=== PATIENT | male | born 1955 | race Caucasian/White ===

== ENCOUNTER → 2016-12-13 | Outpatient (CLI) | payer BC, OTHER ==
[~2016-12-13] MED LIST: IOPAMIDOL (ISOVUE 370) 100 ML BTL IV ONE
== END ==
LOC: FIMAGING 08:05
PROVIDERS: ATTEND Physical Medicine & Rehabilitation
DX: M54.2 Cervicalgia (principal); H91.90 Unspecified hearing loss, unspecified ear
CPT/HCPCS: Q9967

== ENCOUNTER → 2017-10-03 | Outpatient (CLI) | payer OTHER | LOC: CIMAGING 07:15 | PROVIDERS: ATTEND Family Medicine | DX: R10.31 Right lower quadrant pain (principal) | CPT/HCPCS: 76705-PO ==

== ENCOUNTER 2018-02-06 06:37 | Day surgery (SDC) | payer OTHER ==
--- NOTE | 2018-02-05 13:03 | GHP ---
[f rep st] PREOP HISTORY AND PHYSICAL DATE OF ADMISSION: 02/06/2018 CHIEF COMPLAINT: Right lower quadrant abdominal pain. HISTORY OF PRESENT ILLNESS: The patient is a 62-year-old male referred from his PCP regarding right lower quadrant pain associated with a right inguinal hernia. The patient first noticed this in late 2016 after experiencing a pulling sensation in his right groin with side stepping. He says the pain is worse when he presses on the area. He has no history of prior abdominal surgeries here. He denie s nausea, vomiting, diarrhea, or constipation. He has no chronic cough or urinary problems. He had a CT scan of the abdomen and pelvis showing a right inguinal bulging without true herniation and a sm all fat-containing left inguinal hernia as well. He was instantly found to have a small umbilical he rnia on exam today as well. PAST MEDICAL HISTORY: Obstructive sleep apnea, on CPAP. PAST SURGICAL HISTORY: Denies. MEDICATIONS: Atorvastatin, cyclobenzaprine, gemfibrozil, promethazine. ALLERGIES: No known drug allergies. FAMILY MEDICAL HISTORY: Includes father, coronary artery disease with NE. Mother has a family histo ry of leukemia and lymphoma. SOCIAL HISTORY: The patient does not drink alcohol. He does drink caffeine. He is a never smoker. He works as an cost engineer. REVIEW OF SYSTEMS: Includes leg swelling and fullness. PHYSICAL EXAMINATION: GENERAL: A well-developed, well-nourished 62-year-old male, alert and oriente d x3, and in no acute distress. HEENT: Normocephalic, atraumatic. CHEST: Clear to auscultation bi laterally. CARDIAC: Regular rate and rhythm. ABDOMEN: Soft, with reducible right greater than lef t inguinal hernias. Some pain associated with his right inguinal hernia, which is more prominent wit h coughing. Also, a small, reducible umbilical hernia. SKIN: Warm and dry. EXTREMITIES: No edema . IMPRESSION: This is a 62-year-old male with a symptomatic right inguinal hernia and incidentally fou nd left inguinal and umbilical hernias as well. PLAN: Plan will be to proceed with open umbilical hernia surgery with laparoscopic bilateral inguina l hernia surgery using mesh. Again, risks and options have been discussed and include, but are not l imited to, bleeding, infection, nerve injury, recurrence, conversion to open procedure, damage to indu rounding structures, traumatic cord injury, bladder injury, bowel injury, testicular ischemia, and ot her problems, and he requests to proceed. /[id number]/MODL
[2018-02-06] MEDS ORDERED: BUPIVACAINE 0.5% 30 ML SDV ONE (07:08)
[2018-02-06] MEDS ORDERED: ceFAZolin 2 GM/SWFI 2 GM/20 ML SYR IVP ONE (07:10)
--- NOTE | 2018-02-06 07:10 | PDHPUP ---
History & Physical Update H&P update statement: This history and physical update is based on an assessment of the patient which was completed after admission or registration (within 24 hours), but prior to the surgery/procedure. H&P update: H&P reviewed & patient examined, no change in patient's condition since H&P completed
[2018-02-06] MEDS ORDERED: LR 1,000 ML IV ONE (07:11)
--- NOTE | 2018-02-06 07:20 | PDANEPAE ---
ANE Past Medical History - Cardiovascular History Hx Hypertension: No Hx Arrhythmias: No Hx Chest Pain: No Hx Coronary Artery / Peripheral Vascular Disease: No Hx CHF / Valvular Disease: No Hx Palpitations: No Cardiovascular History Comment: high chol - Pulmonary History Hx COPD: No Hx Asthma/Reactive Airway Disease: No Hx Recent Upper Respiratory Infection: No Hx Oxygen in Use at Home: No Hx Sleep Apnea: No Sleep Apnea Screening Result - Last Documented: Negative - Neurologic History Hx Cerebrovascular Accident: No Hx Seizures: No Hx Dementia: No - Endocrine History Hx Diabetes: No Hypothyroid: No Hyperthyroid: No Obesity: no - Renal History Hx Renal Disorders: No - Liver History Hx Hepatic Disorders: No - Neurological & Psychiatric Hx Hx Neurological and Psychiatric Disorders: No - Cancer History Hx Cancer: No - Congenital Disorder History Hx Congenital Disorders: No - GI History GERD: no Hx Gastrointestinal Disorders: No - Other Health History Other Health History: wears glasses - Chronic Pain History Chronic Pain: No - Surgical History Prior Surgeries: bump removed from left big toe a year ago with local ANE Review of Systems Review of Systems: - Exercise capacity Exercise capacity: >=4 METS METS (RN): 4 METS ANE Patient History - Allergies Allergies/Adverse Reactions: No Known Drug Allergies Allergy (Verified 02/05/18 12:49) - Home Medications Home Medications: Co Q-10 02/05/18 [Last Taken 01/29/18] Deep Sleep Herbal Sleep Medication 02/05/18 [Last Taken 02/05/18] Red Yeast Rice 02/05/18 [Last Taken 01/29/18] - Anes Hx Anes Hx: no prior problems Hx Anesthesia Complications (with details): H/O local only - Smoking Hx Smoking Status: Never smoked Marijuana use: No - Alcohol Use Alcohol Use: Rarely - Family Anes Hx Family Anes Hx: neg - N/A Family Hx Anesthesia Complications: none ANE Labs/Vital Signs - Vital Signs Height: 187.96 cm Weight: 89.811 kg ANE Physical Exam - Airway Neck exam: FROM Mallampati Score: Class 2 Mouth exam: normal dental/mouth exam - Pulmonary Pulmonary: no respiratory distress, no rales or rhonchi, clear to auscultation - Cardiovascular Cardiovascular: regular rate and rhythym, no murmur, rub, or gallop - ASA Status ASA Status: I ANE Anesthesia Plan Anesthesia Plan: general endotracheal anesthesia Total IV Anesthesia: No
[2018-02-06] MEDS ORDERED: fentaNYL 100 MCG/2 ML INJ ONE ×3 (07:42→09:31)
[2018-02-06] MEDS ORDERED: REMIFENTANIL HCL 1 MG VIAL ONE (07:42)
[2018-02-06] MEDS ORDERED: LIDOCAINE 2% 5 ML SDV ONE (07:43)
[2018-02-06] MEDS ORDERED: ROCURONIUM 50 MG/5 ML VIAL ONE (07:43)
[2018-02-06] MEDS ORDERED: PROPOFOL/EMULSION 500 MG/50 ML BOTTLE IV ONE (07:43)
[2018-02-06] MEDS ORDERED: PROPOFOL 200 MG/20 ML VIAL ONE (07:43)
[2018-02-06] MEDS ORDERED: DEXAMETHASONE 4 MG/ML VIAL ONE (07:43)
[2018-02-06] MEDS ORDERED: ONDANSETRON 4 MG/2 ML VIAL ONE (07:43)
[2018-02-06] MEDS ORDERED: PROMETHAZINE HCL 25 MG/ML INJ IVP PRN (08:02)
[2018-02-06] MEDS ORDERED: ACETAMINOPHEN 500 MG TAB PO PRN (08:02)
[2018-02-06] MEDS ORDERED: oxyCODONE IR 5 MG TAB PO PRN (08:02)
[2018-02-06] MEDS ORDERED: LR 500 ML IV PRN (08:02)
[2018-02-06] MEDS ORDERED: ONDANSETRON 4 MG/2 ML VIAL IVP PRN (08:02)
[2018-02-06] MEDS ORDERED: MEPERIDINE 25 MG/0.5 ML AMP IVP PRN (08:02)
[2018-02-06] MEDS ORDERED: NALOXONE HCL 0.4 MG/ML INJ IVP PRN (08:02)
[2018-02-06] MEDS ORDERED: epHEDrine SULFATE 10 MG/ML SYR IVP PRN (08:02)
[2018-02-06] MEDS ORDERED: PHENYLEPHRINE HCL 100 MCG/ML SYR IVP PRN (08:02)
[2018-02-06] MEDS ORDERED: HYDROCODONE/APAP 5/325 TAB PO PRN (08:02)
[2018-02-06] MEDS ORDERED: epHEDrine SULFATE 10 MG/ML SYR ONE (08:28)
[2018-02-06] MEDS ORDERED: KETOROLAC 30 MG/1 ML SDV ONE (08:55)
[2018-02-06] MEDS ORDERED: NEOSTIGMINE METHYLSULFATE 3 MG/3 ML SYR ONE (08:59)
[2018-02-06] MEDS ORDERED: GLYCOPYRROLATE 0.2 MG/1 ML VIAL ONE ×3 (08:59)
--- NOTE | 2018-02-06 09:11 | POSTOPPROG ---
Post Op Note Date of Operation: 02/06/18 Surgeon: Satinder Hunter Package Dye Stand Loader: Emiliana Delaney Anesthesiologist: Damian Cody Anesthesia: GET(General Endotracheal) Pre-op Diagnosis: BIH, umbilical hernia Post-op Diagnosis: same Procedure: lap BIH repairs with mesh, umbilical hernia repair (no mesh) Findings: 2 direct inguinal defects, small indirect defect on L. <1 cm umb hernia Inf/Abcess present in the surg proc area at time of surgery?: No EBL: Minimal Complications: none Specimen(s): none
[2018-02-06] MEDS: fentaNYL 100 MCG/2 ML INJ IVP PRN ×3 (09:20→09:32)
--- NOTE | 2018-02-06 09:32 | POSTANESTH ---
Post Anesthetic Evaluation Cardiovascular Status: Normal, Stable Respiratory Status: Normal, Stable Level of Consciousness/Mental Status: Can Participate in Eval Pain Control: Adequate, Prn Tx Ordered Nausea/Vomiting Control: Adequate, Prn Tx Ordered Complications Possibly Related to Anesthesia: None Noted
[2018-02-06] MEDS ORDERED: ACETAMINOPHEN 500 MG TAB ONE (09:38)
[2018-02-06] MEDS ORDERED: oxyCODONE IR 5 MG TAB ONE (09:38)
[2018-02-06 11:10] VITALS: BP 108/66
--- NOTE | 2018-02-07 15:24 | GOP ---
[f rep st] OPERATIVE REPORT DATE OF OPERATION: 02/06/2018 SURGEON: Satinder Hunter MD OUTPATIENT RECEPTIONIST: Emiliana Delaney, MARION. ANESTHESIOLOGIST: Adelaide Cody DO PREOPERATIVE DIAGNOSIS: Right inguinal hernia. POSTOPERATIVE DIAGNOSIS: Bilateral inguinal hernias. PROCEDURE PERFORMED: Laparoscopic bilateral inguinal hernia repairs and umbilical hernia repair. FINDINGS: Patient is found have bilateral direct defects, right greater than left. There were no in direct sacs. He had a less than 1 cm umbilical defect. ESTIMATED BLOOD LOSS: Negligible. DESCRIPTION OF PROCEDURE: Patient was taken to the operating room where he received satisfactory gen eral endotracheal anesthesia by Dr. Cody. He was placed in supine position, prepped and drape d in usual sterile fashion. Infraumbilical incision was made and carried down to the fascia. The umbilical hernia defect was dis sected free circumferentially. The sac was then opened at the fascial level. Contents reduced. Sac was closed with 0 Surgilon [id number] sutures. A second incision was made inferior to the umbilical incision and carried down through the fascia. A subfascial tunnel was developed in the preperitoneal space that was dissected free with a balloon di ssector, which was replaced with CO2 insufflation trocar. Two other trocars were placed under direct vision in the lower abdominal midline. Darrell ligament was exposed bilaterally. Cords were mobiliz ed bilaterally. Peritoneum was dissected off the cord structures. There were no indirect sacs. Joaquín ateral direct defects were exposed. The contents reduced. Bilateral Covidien polyester patches were inserted and anchored in place with AbsorbaTack, securing it to Darrell ligament, to the lacunar liga ment, anterior abdominal wall, and lateral abdominal wall outside the internal ring. He tolerated procedure well, was taken to the recovery room in good condition. COMPLICATIONS: There were no complications. /[id number]/MODL
== END 2018-02-06 10:59 | disposition home or self-care (01) ==
LOC: FSGY 06:37
PROVIDERS: ATTEND Surgery
PROC: 0WQF0ZZ Repair Abdominal Wall, Open Approach (ICD-10-PCS; principal; 2018-02-06 08:00)
PROC: 0YUA4JZ Supplement Bilateral Inguinal Region with Synthetic Substitute, Percutaneous Endoscopic Approach (ICD-10-PCS; principal; 2018-02-06 08:00)
DX: K40.20 Bilateral inguinal hernia, without obstruction or gangrene, not specified as recurrent (principal); K42.9 Umbilical hernia without obstruction or gangrene; E78.5 Hyperlipidemia, unspecified; G47.33 Obstructive sleep apnea (adult) (pediatric); Z82.49 Family history of ischemic heart disease and other diseases of the circulatory system; Z80.6 Family history of leukemia
CPT/HCPCS: C1727; C1781; J0690; J1100; J1885; J2405; J2704; J2710; J3010